=== PATIENT | female | born 1980 | race Caucasian/White ===

== ENCOUNTER 2021-08-16 15:27 | Emergency (ER) | payer SELFPAY ==
[~2021-08-16] VITALS: Ht 160 cm; Wt 45.5 kg
[2021-08-16 15:32] VITALS: BP 121/76
--- NOTE | 2021-08-16 15:40 | NUR ---
Patient with officers at bedside, in handcuffs. Pt cooperative, flat affect.
--- NOTE | 2021-08-16 15:50 | NUR ---
BANDAIDS REMOVED TO ASSESS PT'S ABRASIONS. CLEAN, NEW BANDAIDS REPLACED ON B/L KNEES.
== END 2021-08-16 16:08 ==
LOC: ER 15:28 → EEVIPCON 15:28 → ER 16:08
DX: S80.212A Abrasion, left knee, initial encounter (principal); S80.211A Abrasion, right knee, initial encounter; W19.XXXA Unspecified fall, initial encounter; Y93.89 Activity, other specified; Y92.89 Other specified places as the place of occurrence of the external cause; Y99.8 Other external cause status
CPT/HCPCS: 99284